=== PATIENT | male | born 1960 | race Caucasian/White ===

== ENCOUNTER 2017-10-05 06:11 | Inpatient (IN) | payer OTHER ==
[~2017-10-05 06:11] MED LIST: ALTACE2.5 MG PO; AMARYL PO; JANUMET XR 50-1 EAC1 PO; JARDIANCE10 MG PO; LIPITOR40 MG PO; TAMS0.4C PO
== END 2017-10-07 09:43 | disposition home or self-care (01) | DRG 714 ==
LOC: CIR.AMB 06:11 → O/R 11:17 → MEDI 11:17 → CIR.AMB 13:50 → MEDI 17:31
PROVIDERS: Urology
PROC: 0TFB8ZZ Fragmentation in Bladder, Via Natural or Artificial Opening Endoscopic (ICD-10-PCS; 2017-10-05)
PROC: 0VT08ZZ Resection of Prostate, Via Natural or Artificial Opening Endoscopic (ICD-10-PCS; principal; 2017-10-05 07:00)
DX: N40.1 Benign prostatic hyperplasia with lower urinary tract symptoms (principal); N21.0 Calculus in bladder; E11.9 Type 2 diabetes mellitus without complications

== ENCOUNTER → 2018-01-30 09:57 | Outpatient (CLI) | payer OTHER | END | disposition home or self-care (01) | LOC: LAB 09:57 | DX: N20.0 Calculus of kidney (principal); N21.0 Calculus in bladder ==